=== PATIENT | male | born 1965 | race Caucasian/White ===

== ENCOUNTER → 2022-12-05 08:04 | Outpatient (CLI) | payer OTHER, SELFPAY ==
--- NOTE | 2022-12-05 | PATH_ITS ---
Note [facility] Accession Number: [id number] TESTS RESULT FLAG UNITS REF RANGE LAB Clinician Provided Cytology Information No. of containers..01 Other (Miscellaneous) No. of containers..02 Previously Prepared Cytology Slide Source: RIGHT THYROID NODULE DIAGNOSIS: RIGHT THYROID NODULE, FINE NEEDLE ASPIRATION. INCONCLUSIVE. BETHESDA CATEGORY III. FOLLICULAR LESION OF UNDETERMINED SIGNIFICANCE, SEE COMMENT. COMMENT: EXAMINATION OF THE SMEARS REVEALS A CELLULAR ASPIRATE COMPOSED OF FOLLICULAR CELLS WITH PROMINENT HURTHLE CELL CHANGES, FOCAL NUCLEAR ENLARGEMENT, OVERLAPPING, NUCLEAR OUTLINE IRREGULARITIES (GROOVES) AND SOME COLLOID. NUCLEAR PSEUDOINCLUSIONS ARE NOT SEEN. THE DIFFERENTIAL DIAGNOSIS INCLUDES CELLULAR ADENOMATOID NODULE WITH EXTENSIVE HURTHLE CELL CHANGES OR FOLLICULAR NEOPLASM (ONCOCYTIC/HURTHLE CELL TYPE). THE RISK OF MALIGNANCY IN THE BETHESDA CATEGORY III IS 5-15%. ADDITIONAL MOLECULAR TESTING WILL BE PERFORMED ON THE SUBMITTED RNA VIAL FOR FURTHER EVALUATION. Pathologist ICD10: 01 R89.6, E04.1 Signed out by: Bisi Driver MD, Pathologist NPI- [id number] Performed by: Ronald Gonzales, Mail Carrier ([facility]) Gross description: 01 30 CC, PINK, HAZY RECEIVED IN CYTOImage Engine DesignT WHITE CAP CONTAINER RCEIVED 6 ALCOHOL FIXED SLIDES IN 2 GREEN CAP COFFINS RECEIVED 6 FIXED DRY SLIDES IN 2 SLIDE HOLDERS RECEIVED 1 RNA VIALMakeda /WILLIAM 12/06/2022 0724 Local FLAG LEGEND: L-Low Normal,H-High Normal,LL-Alert Low,HH-Alert High <-Panic Low,>-Panic High,A-Abnormal,AA-Critical Abnormal Performed at: 01 =Z [facility] [address] [place] [address] [address], [place] [address] Jose M Cox MD, Performed at: 01 [facility] [address] [place] [address] [address], [place], [place] [id number] MD Jose M Cox MD Phone: [phone]
--- NOTE | 2022-12-05 | DI.US.S_ITS ---
PROCEDURE: US FINE NEEDLE ASPIRATION INDICATIONS: Nontoxic single thyroid nodule TECHNIQUE: The indications, alternatives, benefits, risks, and complications of the procedure were explained to the patient. Written informed consent was obtained and placed in the chart. The area of interest was examined sonographically and a site was chosen for ultrasound guided percutaneous sampling. The skin was prepared and draped in the usual fashion, and anesthetized with 1% lidocaine infiltrated from the skin down to the lesion. Multiple passes were then performed, with contents emptied into an appropriate pathology specimen container. A bandage was applied to the area of access at completion of the study. COMPARISON: [facility], , CT SOFT TISSUE NECK WITH CONTRAST, 09/28/2022, 10:59. [facility] , US THYROID, 10/11/2022, 10:57. FINDINGS: Location(s) of lesion(s) sampled: Right inferior hypervascular nodule with a punctate calcifications. (measured 1.9 x 1.7 x 1.5 cm on the prior ultrasound. [place]: 25 gauge hypodermic needles. Number of passes: 6 Medications: 1% lidocaine for local anaesthesia. Complications: None. IMPRESSION: Successful ultrasound-guided right inferior thyroid nodule fine needle aspiration, with cytology results pending. Dictated by: Miguel Meade M.D. on 12/05/2022 at 10:20 Approved by: Miguel Meade M.D. on 12/05/2022 at 10:23
== END ==
PROVIDERS: PCP Family Medicine; Referring Provider Physician Assistant; Visit Provider Physician Assistant
DX: E04.1 Nontoxic single thyroid nodule (principal)
CPT/HCPCS: 10005

== ENCOUNTER → 2023-12-20 14:01 | Outpatient (CLI) | payer OTHER, SELFPAY ==
--- NOTE | 2023-12-20 14:04 | DI.US.S_ITS ---
PROCEDURE: US THYROID INDICATIONS: RIGHT THYROID NODULE TECHNIQUE: Real-time scanning was performed of the thyroid gland, with image documentation. COMPARISON: [facility], , US THYROID, 10/11/2022, 10:57. FINDINGS: The previously described and biopsied solid nodule in the right midpole measures 1.9 x 1.9 x 1.9 centimeters, previously 1.7 x 1.5 x 1.8 centimeters (less than 50 percent volume growth). This incorrectly included the measurement of the adjacent spongiform nodule on ultrasound dated 10/13/2023. The nodules described below: Nodule number: 1 Location: Right midpole Size: 1.9 x 1.9 x 1.9 cm. Composition: Solid Echogenicity: Hypoechoic Shape: wider than tall. Margins: Smooth Echogenic foci: Macroscopic Total points: 6 ACR TI-RADS category: Moderate suspicion IMPRESSION: The previously described right midpole nodule has not demonstrated a significant increase in volume to warrant re-biopsy at this time. Continued follow-up is recommended. ACR TI-RADS definitions and recommendations: TI-RADS 1 (benign): 0 points. FNA not needed. TI-RADS 2 (not suspicious): 2 points. FNA not needed. TI-RADS 3 (mildly suspicious): 3 points. * FNA if 2.5 cm or larger, follow up if 1.5 cm or larger (at 1, 3, and 5 years). TI-RADS 4 (moderately suspicious): 4-6 points. * FNA if 1.5 cm or larger, follow up if 1 cm or larger (at 1, 2, 3, and 5 years). TI-RADS 5 (highly suspicious): 7 points or more. * FNA if 1 cm or larger, follow up if 0.5 cm or larger (every year for 5 years). Dictated by: Rene Fernández M.D. on 12/21/2023 at 16:12 Approved by: eRne Fernández M.D. on 12/21/2023 at 16:16
== END ==
LOC: US 14:02
PROVIDERS: PCP Family Medicine; Referring Provider Otolaryngology; Visit Provider Otolaryngology
DX: E04.1 Nontoxic single thyroid nodule (principal)
CPT/HCPCS: 76536